=== PATIENT | female | born 1985 | race Caucasian/White ===

== ENCOUNTER 2025-02-06 02:08 | Emergency (ER) | payer SELFPAY ==
[2025-02-06 02:14] VITALS: BMI 34.9
[2025-02-06 03:22] VITALS: RESP 18; TEMP 97.6
[2025-02-06 05:25] VITALS: BP 110/75; PULSE 87
== END 2025-02-06 05:34 | disposition home or self-care (01) ==
LOC: JER 02:08
DX: R00.0 Tachycardia, unspecified (principal); G47.00 Insomnia, unspecified; F41.9 Anxiety disorder, unspecified
CPT/HCPCS: 93005; 93010; 99283-25

== ENCOUNTER 2025-02-06 07:03 | Observation (INO) | payer OTHER ==
[2025-02-06] MEDS: SODIUM CHLORIDE 0.9% 500 ML INFUS.BAG IV ONE (08:38)
[2025-02-06 08:47] LABS: ABSOLUTE IMMATURE GRANULOCYTES 0.02 x10^3/uL (0.0-0.031); BASOPHILS # 0.04 x10^3/uL (0.01-0.08); EOSINOPHIL % 0.1 % (0.7-5.8); EOSINOPHILS # 0.01 x10^3/uL (0.04-0.36); MCHC 33.1 g/dl (32.2-35.5); MEAN CELL VOLUME 89.4 fl (79.4-94.8); MEAN PLT VOLUME 11.1 fl (9.4-12.3); MONOCYTE # 0.76 x10^3/uL (0.24-0.86); MONOCYTE % 11.2 % (4.7-12.5); RDW 12.8 % (12.1-16.8)
[2025-02-06 09:11] LABS: CO2 21.0 mmol/L (21-32); GLUCOSE,RANDOM 104.0 mg/dL (74-106)
[2025-02-06 09:14] LABS: CREATININE 1.0 mg/dL (0.55-1.3); SGOT/AST 60.0 U/L (15-37); SGPT/ALT 52.0 U/L (13-61)
[2025-02-06 09:16] LABS: TOT PROT 8.3 g/dl (6.4-8.2)
[2025-02-06 09:17] LABS: ALK PHOS 115.0 U/L (45-117)
[2025-02-06 14:05] LABS: CO2 27.0 mmol/L (21-32); GLUCOSE,RANDOM 98.0 mg/dL (74-106)
[2025-02-06 14:29] LABS: CREATININE 0.7 mg/dL (0.55-1.3)
[2025-02-06 17:42] VITALS: BMI 34.8
[2025-02-07] MEDS: METOPROLOL TARTRATE 25 MG TABLET (FP) PO PRN (06:30)
[2025-02-07] MEDS: LACTATED RINGERS SOLUTION 1,000 ML/1,000 ML INFUS.BAG IV SCH (06:44)
[2025-02-07 08:58] LABS: CO2 28.0 mmol/L (21-32); GLUCOSE,RANDOM 102.0 mg/dL (74-106)
[2025-02-07 09:01] LABS: CREATININE 0.7 mg/dL (0.55-1.3); SGPT/ALT 43.0 U/L (13-61)
[2025-02-07 09:02] LABS: SGOT/AST 28.0 U/L (15-37)
[2025-02-07 09:03] LABS: TOT PROT 6.9 g/dl (6.4-8.2)
[2025-02-07 09:04] LABS: ALK PHOS 90.0 U/L (45-117)
[2025-02-07 12:14] LABS: PHENCYCLIDINE,URINE NEGATIVE (NEGATIVE)
[2025-02-07 12:15] LABS: COCAINE, UR NEGATIVE (NEGATIVE); METHADONE, UR NEGATIVE (NEGATIVE); URINE BARBITURATES NEGATIVE (NEGATIVE); URINE BENZODIAZEPINES NEGATIVE (NEGATIVE)
[2025-02-07 12:41] LABS: OPIATES, URI NEGATIVE (NEGATIVE)
[2025-02-07 14:34] VITALS: BP 112/80; PULSE 81; RESP 17; TEMP 98.6
[2025-02-08 00:53] LABS: URINE AMPHETAMINES NEGATIVE (NEGATIVE)
== END 2025-02-07 15:41 | disposition home or self-care (01) ==
LOC: JER 07:03 → JERBED 08:44 → J4S 15:27
PROVIDERS: ADMIT Internal Medicine; ATTEND Internal Medicine
PROC: 3E0337Z Introduction of Electrolytic and Water Balance Substance into Peripheral Vein, Percutaneous Approach (ICD-10-PCS; principal; 2025-02-06)
PROC: 3E033NZ Introduction of Analgesics, Hypnotics, Sedatives into Peripheral Vein, Percutaneous Approach (ICD-10-PCS; 2025-02-06)
DX: R00.2 Palpitations (principal); R00.0 Tachycardia, unspecified; R56.9 Unspecified convulsions; E66.9 Obesity, unspecified
CPT/HCPCS: 36415; 76705-TC; 80048; 80053; 80307; 82248; 83735; 84443; 85025; 93005; 93010; 93306-TC; 96361; 96374; 99285-25; G0378